=== PATIENT | female | born 1970 | race Caucasian/White ===

== ENCOUNTER 2017-12-13 15:51 | Emergency (ER) | payer BC ==
[~2017-12-13] VITALS: Ht 167.6 cm; Wt 67.3 kg
[2017-12-13] VITALS (9 sets, daily range): BP systolic 114–132; BP diastolic 68–90; PULSE 70–78; TEMP 36.7; O2SAT 93–100; Ht 167.6 cm; Wt 67.3 kg
[2017-12-13] MEDS ORDERED: MoRPHine SULFATE 10 MG/ML CARP/VIAL IV STA ×2 (16:09→17:10)
[2017-12-13] MEDS ORDERED: ONDANSETRON INJ 2 MG/ML 2 ML VIAL IV STA (16:09)
--- NOTE | 2017-12-13 17:16 | DIAGNOSTIC IMAGING REPORT ---
LEFT WRIST RADIOGRAPHS CLINICAL HISTORY: Fall. Evaluate for fracture. COMPARISON: None FINDINGS: There is a comminuted, moderately displaced and angulated distal left radial fracture with intra-articular extension. There is dorsal tilt of the distal component consistent with a Colles' type fracture. No additional fractures are identified on this examination. There is associated soft tissue swelling. IMPRESSION: Acute moderately displaced comminuted distal left radial fracture with intra-articular extension and significant dorsal tilt of the distal component consistent with a Colles' type fracture. Electronically signed by: Ariel Montiel M.D. 12/13/2017 5:14 PM Dictated Date/Time: 12/13/2017 5:13 PM
[2017-12-13] MEDS ORDERED: PROPOFOL IV EMULSION 10 MG/ML 20 ML VIAL IV ONE ×2 (17:45→18:00)
[2017-12-13] MEDS ORDERED: SODIUM CHLORIDE 0.9% 1000ML 1,000 ML IV SCH (17:50)
[2017-12-13] MEDS ORDERED: FENTANYL CITRATE INJ 50 MCG/1 ML 2 ML VIAL ONE ×3 (18:03→18:36)
--- NOTE | 2017-12-13 18:33 | DIAGNOSTIC IMAGING REPORT ---
L WRIST 2 VIEW CLINICAL HISTORY: POST REDUCTION COMPARISON: Left wrist radiographs December 13, 2017 at 4:46 PM. FINDINGS: Fine detail is diminished by overlying cast. Alignment of the distal left radial fracture has improved. Fracture is comminuted and mildly displaced with slight residual angulation. IMPRESSION: Improved alignment of distal left radial comminuted, displaced fracture status post reduction. Electronically signed by: Ariel Montiel M.D. 12/13/2017 6:31 PM Dictated Date/Time: 12/13/2017 6:30 PM
--- NOTE | 2017-12-13 19:11 | DIAGNOSTIC IMAGING REPORT ---
L WRIST 2 VIEW CLINICAL HISTORY: post reduction COMPARISON: Left wrist radiographs December 13, 2017 at 6:13 PM. FINDINGS: Fine detail is diminished by cast. Alignment of the distal left radial fracture has improved since exam performed at 6:05 PM. The fracture is comminuted and mildly displaced. IMPRESSION: Improved alignment of the distal left radial fracture status post reduction. Electronically signed by: Ariel Montiel M.D. 12/13/2017 7:09 PM Dictated Date/Time: 12/13/2017 7:09 PM
--- NOTE | 2017-12-13 19:17 | ORTHOPEDIC CONSULTATION ---
DATE OF CONSULTATION: 12/13/2017 CHIEF COMPLAINT: Displaced left distal radius fracture. HISTORY OF PRESENT ILLNESS: Sherlyn is a very pleasant 47-year-old female who was riding her horse earlier today. She was not on her horse when a Garfield backed up into her and pushed her down to the ground. She had significant left wrist pain and deformity. She came to Emergency Room, radiographs demonstrated an extraarticular left distal radius fracture. Orthopedics was consulted to evaluate and treat. PAST MEDICAL HISTORY: Significant for mitral valve prolapse. PAST SURGICAL HISTORY: Significant for chest tube placement. CURRENT MEDICATIONS: None. ALLERGIES: SULFA. FAMILY HISTORY: Denies. SOCIAL HISTORY: She has just moved from [place] [facility]. She drinks alcohol socially and occasionally. REVIEW OF SYSTEMS: Complains mostly of left wrist pain and deformity. All other pertinent review of systems are negative. PHYSICAL EXAMINATION: LEFT WRIST: There is a gross deformity of the left distal radius. There are no abrasions, lesions, lacerations of the skin. This is a closed fracture. Her radial, median and ulnar nerves were all checked and intact. X-rays of the left distal radius show a dorsally displaced extraarticular left distal radius fracture. IMPRESSION: Left distal radius fracture. PLAN: We did a closed reduction in the Emergency Room. The reduction looked anatomic. She was kept in a coaptation splint and given an arm sling, given oral pain medications by the Emergency Room and discharged to home. I will see her in my office in 2 days for repeat x-rays to make sure there is no displacement.
[2017-12-13] MEDS ORDERED: OXYC1TAB3 PO (19:19)
--- NOTE | 2017-12-13 19:22 | OPERATIVE REPORT ---
DATE OF OPERATION: 12/13/2017 PREOPERATIVE DIAGNOSIS: Dorsally displaced extraarticular left distal radius fracture. POSTOPERATIVE DIAGNOSIS: Same. PROCEDURE: Closed reduction and splinting of the left distal radius. SURGEON: Yash Aquino DO. ASSISTANTS: None. ANESTHESIA: Propofol in the Emergency Room. COMPLICATIONS: None. CONDITION: Stable. INDICATIONS: Sherlyn is a pleasant 47-year-old female who fell earlier today on her left outstretched hand. She noticed gross deformity of her left distal radius. She came to the Emergency Room, radiographs demonstrated a dorsally displaced left distal radius fracture. After consent, she elected to undergo a closed reduction. DESCRIPTION OF THE PROCEDURE: Propofol and fentanyl were administered by the Emergency Room physician. Once proper anesthesia was performed, I did a closed reduction of the left distal radius. I placed her in a coaptation splint and x-rays showed improved alignment, but still unacceptable. I removed the coaptation splint and hung her in finger traps. I left her hung in finger traps for several minutes. Did a repeat reduction and a repeat splinting. Post-reduction radiographs then showed anatomic alignment of the fracture. I was happy with the overall alignment. She was placed in an arm sling, given pain medications and eventually discharged to home from the Emergency Room. I attest to the content of the Intraoperative Record and any orders documented therein. Any exception s are noted below.
--- NOTE | 2017-12-13 19:30 | EMERGENCY ROOM VISIT NOTE ---
ED Visit Note First contact with patient: 16:29 Evaluated the patient with a SABIHA Braden. Patient suffered a FOOSH and now has left upper extremity fracture. Orthopedics here to reduce the fracture, requesting conscious sedation for reduction. See procedure note below. Procedural Sedation #1 Indication Left wrist reduction by Orthopedics. Total time: 22 minutes. Written consent was obtained after the risks and benefits were explained to the patient, including, but not limited to aspiration, allergic reaction, breathing difficulties, cardiac complications, vomiting, pain, event recall, bleeding, and /or infection. Pre-sedation examination and paperwork completed. The patient was on 100% oxygen via NRB prior to the procedure. Continous end tidal CO2 monitoring, pulse oximetry, and cardiac monitoring were utilized. Suction, airway equipment, medications, respiratory equipment, and appropriate personnel were prepared prior to the initiation of the procedure. A time out was taken. Sedation was achieved utilizing 10 mg of Propofol. After I observed the patient had reached the appropriate level of sedation the main procedure was performed without complication. Sedation was discontinued and the monitoring continued. The patient recovered quickly from the effects of the medication without complication or adverse event. The fracture was reduced by Dr. Aquino at bedside. Post reduction films did not show adequate reduction. Dr. Aquino requested that a second attempt be made under Conscious Sedation. See second note. After Second sedation the patient's fracture was successfully reduced and placed in splint by Dr. Aquino. Procedural Sedation #2 Indication Left wrist reduction by Orthopedics. Total time: 20 minutes. Written consent was obtained after the risks and benefits were explained to the patient, including, but not limited to aspiration, allergic reaction, breathing difficulties, cardiac complications, vomiting, pain, event recall, bleeding, and /or infection. Pre-sedation examination and paperwork completed. The patient was on 100% oxygen via NRB prior to the procedure. Continous end tidal CO2 monitoring, pulse oximetry, and cardiac monitoring were utilized. Suction, airway equipment, medications, respiratory equipment, and appropriate personnel were prepared prior to the initiation of the procedure. A time out was taken. Sedation was achieved utilizing 7 mg of Propofol. During sedation, the patinets [id number] dropped to 86%, patient was easily bagged with ambubag, to 100& SaO2. Total time of desaturation was less than 1 minute. After bagging the patients SaO2 remained at 100% and her EtCO2 remained 36-44 on monitor. After I observed the patient had reached the appropriate level of sedation the main procedure was performed without complication. Sedation was discontinued and the monitoring continued. The patient recovered quickly from the effects of the medication without complication or adverse event. The patient was seen and examined with isis. I agree with the history, physical and findings. Please see the note for disposition and details. The chart was completed utilizing [employer] Speech voice recognition software. Grammatical errors, random word insertions, pronoun errors, and incomplete sentences are an occasional consequence of this system due to software limitations, ambient noise, and hardware issues. Any formal questions or concerns about the content, text, or information contained within the body of this dictation should be directly addressed to the physician for clarification.
[2017-12-13] MEDS ORDERED: OXYCODONE HCL IR 5 MG TAB (IMMEDIATE RELEASE) PO STA (19:32)
--- NOTE | 2017-12-13 19:33 | EMERGENCY ROOM VISIT NOTE ---
ED Visit Note First contact with patient: 15:57 CHIEF COMPLAINT: Left wrist injury this afternoon HISTORY OF PRESENT ILLNESS: Patient is a [id number] 47-year-old white female who presents emergency department for evaluation of left wrist pain. She was at her horseback riding facility, when she slipped and fell on her extended left forearm, with immediate onset of pain and deformity at the left wrist. She notes a 10/10 pain in the wrist that does not radiate. She denies any numbness or tingling into her hand or fingers. She denies any elbow pain. She did not take any medications, nor perform any interventions and came directly to the emergency department. She denies any other injuries related to the fall. REVIEW OF SYSTEMS: Review of systems as per HPI. All other systems reviewed were negative. 10 systems reviewed. PMH: The patient reports that she is otherwise healthy without any chronic medical problems. No recent surgeries. She does not take any medications on a regular basis. SOCIAL HISTORY: Patient lives at home with her spouse. She does not smoke. They moved here from [place] about 3 weeks ago.. PHYSICAL EXAM: Vital Signs: Reviewed Nurse's notes. CONSTITUTIONAL: Patient is a well-appearing 47-year-old white female who is awake and alert and in moderate distress due to her stated complaint. MUSCULOSKELETAL: Examination of the patient's left wrist note an obvious deformity. Skin is intact without laceration. The left wrist is significantly tender to palpation. She does not have any pain over the proximal radial head, no elbow joint effusion is appreciated. She can flex and extend at the elbow without discomfort. She has pain when she attempts to wiggle and move her fingers, but can do so. Sensation light touch is intact over the left hand. Capillary refill less than 2 seconds. EMERGENCY DEPARTMENT COURSE: The patient was seen and assessed as above. IV access was obtained. She was medicated with morphine 6 mg IV 2 and Zofran 4 mg IV. Ice pack was applied. X-rays of the left wrist were obtained. X-rays are consistent with a displaced and angulated left distal radius fracture. Dr. Aquino, on-call for orthopedics, was consulted and came to the emergency department, evaluated the patient and performed close reduction. Please refer to his orthopedic notes for further information. Postreduction x-rays were obtained. Conscious sedation was performed by Dr. Maya, please refer to his separate dictation for procedure note. The patient was recovered from sedation per protocol. She was reassessed frequently, and remained neurovascularly intact. She was fitted with an arm sling. She was given oxycodone 10 mg orally prior to discharge. Conservative care measures were discussed, including cast care and signs and symptoms of compartment syndrome. The patient and her expressed understanding. The patient was discharged home with her driving. Medication reconciliation: I attest that I have personally reviewed the patient' s current medication list. Blood pressure screening : Patient was found to have normal blood pressure on screening and does not require follow-up. Patient was reviewed in the [facility] Prescription Drug Monitoring Program, and there were no red flags noted. L WRIST 2 VIEW CLINICAL HISTORY: post reduction COMPARISON: Left wrist radiographs December 13, 2017 at 6:13 PM. FINDINGS: Fine detail is diminished by cast. Alignment of the distal left radial fracture has improved since exam performed at 6:05 PM. The fracture is comminuted and mildly displaced. IMPRESSION: Improved alignment of the distal left radial fracture status post reduction. L WRIST 2 VIEW CLINICAL HISTORY: POST REDUCTION COMPARISON: Left wrist radiographs December 13, 2017 at 4:46 PM. FINDINGS: Fine detail is diminished by overlying cast. Alignment of the distal left radial fracture has improved. Fracture is comminuted and mildly displaced with slight residual angulation. IMPRESSION: Improved alignment of distal left radial comminuted, displaced fracture status post reduction. LEFT WRIST RADIOGRAPHS CLINICAL HISTORY: Fall. Evaluate for fracture. COMPARISON: None FINDINGS: There is a comminuted, moderately displaced and angulated distal left radial fracture with intra-articular extension. There is dorsal tilt of the distal component consistent with a Colles' type fracture. No additional fractures are identified on this examination. There is associated soft tissue swelling. IMPRESSION: Acute moderately displaced comminuted distal left radial fracture with intra-articular extension and significant dorsal tilt of the distal component consistent with a Colles' type fracture. Current/Historical Medications Scheduled PRN Oxycodone Immediate Rel Tab (Roxicodone Ir), 1-2 TAB PO Q4H PRN for Severe Pain Allergies Coded Allergies: Sulfa Antibiotics (Verified Allergy, Mild, HIVES, 12/13/17) Uncoded Allergies: PCN (Allergy, Unknown, UNKNOWN, 12/13/17) Vital Signs Date Time Temp Pulse Resp B/P (MAP) Pulse Ox O2 Delivery O2 Flow Rate FiO2 12/13/17 20:10 98 Room Air 12/13/17 19:35 85 18 118/71 96 Room Air 12/13/17 19:11 81 20 96 12/13/17 19:10 125/72 12/13/17 19:06 81 16 91 12/13/17 19:05 120/73 12/13/17 19:01 76 20 113/81 97 12/13/17 18:56 71 20 96 12/13/17 18:55 127/81 12/13/17 18:51 73 18 98 12/13/17 18:50 127/83 12/13/17 18:46 72 18 100 12/13/17 18:45 124/81 12/13/17 18:41 67 20 100 12/13/17 18:40 36.7 72 20 124/81 99 Room Air 12/13/17 18:36 68 12 129/91 100 12/13/17 18:32 76 20 132/90 93 Nasal Cannula 3.0 12/13/17 18:31 78 11 132/90 87 12/13/17 18:30 93 Nasal Cannula 12/13/17 18:26 75 12 100 12/13/17 18:25 127/83 12/13/17 18:21 76 17 100 12/13/17 18:20 128/82 12/13/17 18:19 77 18 130/85 98 Room Air 12/13/17 18:16 76 10 100 12/13/17 18:15 73 16 130/85 100 Nasal Cannula 2.0 12/13/17 18:15 130/85 12/13/17 18:11 72 11 127/84 100 12/13/17 18:10 73 16 127/84 100 Nasal Cannula 2.0 12/13/17 18:06 71 12 100 12/13/17 18:05 70 14 129/83 98 Nasal Cannula 2.0 12/13/17 18:05 129/83 12/13/17 18:01 74 12 114/82 97 12/13/17 18:00 74 14 114/82 98 Nasal Cannula 2.0 12/13/17 17:56 79 13 143/93 100 12/13/17 17:55 75 16 143/93 100 Nasal Cannula 2.0 12/13/17 17:51 75 13 98 12/13/17 17:46 79 18 99 12/13/17 17:41 147/97 12/13/17 15:55 36.4 80 16 133/87 97 Room Air Medications Administered Medications (Trade) Dose Ordered Sig/Roger Route Start Time Stop Time Status Last Admin Dose Admin Ondansetron HCl (Zofran Inj) 4 mg NOW STAT IV 12/13/17 16:09 12/13/17 16:11 DC 12/13/17 16:45 4 MG Morphine Sulfate (MoRPHine SULFATE INJ) 6 mg NOW STAT IV 12/13/17 16:09 12/13/17 16:11 DC 12/13/17 16:44 6 MG Morphine Sulfate (MoRPHine SULFATE INJ) 6 mg NOW STAT IV 12/13/17 17:10 12/13/17 17:11 DC 12/13/17 17:20 6 MG Sodium Chloride 1,000 ml @ 100 mls/hr Q10H IV 12/13/17 17:50 01/12/18 17:49 12/13/17 17:50 100 MLS/HR Oxycodone HCl (Roxicodone Immediate Rel Tab) 10 mg NOW STAT PO 12/13/17 19:32 12/13/17 19:33 DC 12/13/17 20:15 10 MG Departure Information Impression Primary Impression: Closed fracture of left distal radius Prescriptions Oxycodone Immediate Rel Tab (ROXICODONE IR) 5 Mg Tab 1-2 TAB PO Q4H Y for Severe Pain, #30 TAB For Initial Treatment Prov: Tawanna Braden PA 12/13/17 Referrals No Doctor, Assigned (PCP) Yash Aquino, DO Patient Instructions [facility] Additional Instructions DO NOT drive, drink alcohol, operate machinery, or perform dangerous activities today. You were given medications in the ER that can affect your ability to safely function or operate a vehicle. Oxycodone (OxyIR) 5mg: Take 1-2 pills every four hours for breakthrough pain. Avoid alcohol, operating machinery or dangerous equipment, working on ladders or roofs, DRIVING, or situations where being under the influence may be dangerous. It is recommended to use an [id number] stool softener such as Colace, 100mg twice daily while taking this medication to avoid constipation. Ibuprofen(Motrin, Advil) may be used for fever or pain. Use 600mg every six hours as needed. Take with food. Avoid using more than 2400mg in a 24 hour period. Do not use 2400mg per day for more than three consecutive days without physician direction. Prolonged inappropriate use can lead to stomach upset or ulcers. This medication can be taken if you need to drive, work, or perform activities which may be dangerous when taking narcotic pain medication. (AND/OR) Acetaminophen(Tylenol) may be used for fever or pain. Use 1000mg every six hours as needed. Avoid using more than 3000mg in a 24 hour period. This medication can be taken if you need to drive, work, or perform activities which may be dangerous when taking narcotic pain medication. Ice compresses for 20 minutes at a time four times daily for 2-3 days. Use the sling as instructed. Remove your arm from the sling 4-6 times a day and move all the joints around to keep them loose. Rest and elevate your injury. Keep your wrist above the level of your heart as much as possible. Do not get the splint wet. If your splint feels excessively tight, you have worsening pain, develop numbness or tingling, or your digits appear blue, loosen the claude wrap. Then reapply the claude wrap gently without removing the splint. If your symptoms are not quickly relieved return to the ER for re- evaluation. Continue current medications. Return to the ER immediately for any numbness, tingling, severe pain, extreme swelling in the extremity or as needed. Call [facility] tomorrow to arrange follow up for your injury. Dr. Aquino would like to see you in the office on Wednesday afternoon. Problem Qualifiers Primary Impression: Closed fracture of left distal radius Encounter type: initial encounter Fracture morphology: Colles' Qualified Codes: S52.532A - Colles' fracture of left radius, initial encounter for closed fracture
== END 2017-12-13 20:42 | disposition home or self-care (01) ==
LOC: C.EDB 15:53
DX: S52.532A Colles' fracture of left radius, initial encounter for closed fracture (principal); W01.0XXA Fall on same level from slipping, tripping and stumbling without subsequent striking against object, initial encounter; Y92.71 Barn as the place of occurrence of the external cause; Z88.2 Allergy status to sulfonamides